=== PATIENT | male | born 1950 | race Caucasian/White ===

== ENCOUNTER → 2016-12-01 | Outpatient (CLI) | payer BC ==
--- NOTE | 2016-12-01 10:32 | US ---
Ultrasound Abdomen Retroperitoneal, Limited History: Follow up abdominal aortic aneurysm previously identified on CT angiography performed at an outside facility. The patient has a clinical history of coronary artery disease and hypertension. Technique: Transabdominal longitudinal and transverse ultrasound imaging of the abdominal aorta. [place] r Doppler evaluation is employed for assessment of vascularity. Evaluation is somewhat compromised by patient body habitus. Comparison to CT study from [facility] September 30, 2016. Findings Proximal aorta measures 2.4 cm (AP) x 2.4 cm (transverse) Mid aorta measures 1.4 cm (AP) x 1.4 cm (transverse) Distal aorta measures 3.6 cm (AP) x 3.6 cm (transverse) Right common iliac artery measures 1.3 cm (AP) x 1.3 cm (transverse) Left common iliac artery measures 1.3 cm (AP) x 1.3 cm (transverse) No periaortic abnormality is identified. Impression: Infrarenal abdominal aortic aneurysm measuring 3.6 cm in diameter. The estimated diameter on the [facility] study was 3.6 cm and the aneurysm is presumably unchanged.
--- NOTE | 2016-12-01 10:35 | US ---
Bilateral Duplex/Doppler Carotid Sonography Clinical Indications: History of CAD and arterial hypertension; evaluate for arterial occlusive disea se. Technique: The cervical portions of the carotid and vertebral arteries were imaged and interrogated b y color and pulsed Doppler. Spectral analysis was performed. Findings: Right Carotid: The common carotid artery, bifurcation, and origins of the internal and external carot id arteries are well imaged. Minimal plaque formation is seen at the level of the carotid bifurcatio n. Peak ICA systolic velocity; 69 cm/sec. The internal to common carotid artery ratio is calculated at 1.0. Peak ICA diastolic velocity; 13 cm/sec. There is no evidence of flow-limiting stenosis. Left Carotid: The common carotid artery, bifurcation, and origins of the internal and external carot id arteries are well imaged. Mild plaque formation is seen at the level of the carotid bifurcation. Peak ICA systolic velocity; 63 cm/sec. The internal to common carotid artery ratio is calculated at 0.8. Peak ICA diastolic velocity; 10 cm/sec. There is no evidence of flow-limiting stenosis. Vertebral Arteries: Antegrade flow is shown by pulsed Duplex/Doppler of each vertebral artery. Impression: Plaque formation is seen involving the carotid bifurcations bilaterally with no evidence of flow-limiting carotid stenosis. Measurement of carotid stenosis is based on velocity parameters that correlate the residual internal carotid diameter with [place] Symptomatic Carotid Endarterectomy Trial (NASCET) based stenosis levels.
== END ==
LOC: BMCIMAGING 07:49
PROVIDERS: ATTEND Internal Medicine Interventional Cardiology
DX: I65.23 Occlusion and stenosis of bilateral carotid arteries (principal); I71.4 Abdominal aortic aneurysm, without rupture; I10 Essential (primary) hypertension; I25.10 Atherosclerotic heart disease of native coronary artery without angina pectoris

== ENCOUNTER 2016-12-23 07:24 | Observation (INO) | payer BC ==
[2016-12-23] MEDS ORDERED: DIAZEPAM 5 MG TAB PO ONE (07:30)
[2016-12-23] MEDS ORDERED: ASPIRIN EC 325 MG TAB PO ONE ×2 (07:30→08:09)
[2016-12-23] MEDS ORDERED: FAMOTIDINE 20 MG TAB PO ONE (07:30)
[2016-12-23] MEDS ORDERED: diphenhydrAMINE 25 MG CAP PO ONE ×2 (07:30→08:09)
[2016-12-23] MEDS ORDERED: NS 1,000 ML IV ONE (07:30)
[2016-12-23] MEDS ORDERED: DIAZEPAM 5 MG TAB ONE (08:09)
[2016-12-23] MEDS ORDERED: FAMOTIDINE 20 MG TAB ONE (08:09)
--- NOTE | 2016-12-23 08:09 | CPEKG ---
Heart Rate: 48 RR Interval: 1250 P-R Interval: 212 QRSD Interval: 104 QT Interval: 444 QTC Interval: 397 P [place]: 18 QRS [place]: -30 T Wave [place]: -7 EKG Severity - ABNORMAL ECG - EKG Impression: SINUS BRADYCARDIA EKG Impression: LEFT AXIS DEVIATION EKG Impression: ABNRM R PROG, CONSIDER ASMI OR LEAD PLACEMENT EKG Impression: BORDERLINE T ABNORMALITIES, INFERIOR LEADS Electronically Signed By: Radha Velez 23-Dec-2016 17:07:43
[2016-12-23 08:24] LABS: ADD DIFF? NO; ADD MORPH? NO; ADD SCAN? NO; ATYPICAL LYMPHOCYTE FLAG 0 (0-99); FRAGMENT RBC FLAG 0 (0-99); HEMATOCRIT 51.4 % (40.0-51.0); LEFT SHIFT FLG 0 (0-99); LIPEMIA HEMOLYSIS FLAG 90 (0-99); MEAN CELL VOLUME 94.3 fL (81.5-99.8); MEAN PLATELET VOLUME 11.9 fL (8.7-11.7); PLATELET CLUMPS FLAG 10 (0-99); PLATELET COUNT 110 10^3/uL (150-400); RED BLOOD CELL COUNT 5.45 10^6/uL (4.40-6.38); RED CELL DISTRIBUTION WIDTH 12.7 % (11.5-15.2)
[2016-12-23 08:35] LABS: INR 1.09 (0.83-1.16)
[2016-12-23] MEDS ORDERED: LIDOCAINE 1% 30 ML SDV ONE ×3 (08:39→10:50)
[2016-12-23] MEDS ORDERED: fentaNYL 100 MCG/2 ML INJ ONE ×2 (08:40→10:02)
[2016-12-23] MEDS ORDERED: MIDAZOLAM 2 MG/2 ML VIAL ONE ×3 (08:41→10:45)
[2016-12-23] MEDS ORDERED: VERAPAMIL 5 MG/2 ML VIAL ONE ×2 (08:42→09:56)
[2016-12-23] MEDS ORDERED: IOPAMIDOL (ISOVUE-370) 150 ML BTL IV ONE ×4 (08:42→10:11)
[2016-12-23] MEDS ORDERED: HEPARIN 10,000 UNIT/10 ML MDV ONE ×2 (08:42→09:49)
[2016-12-23 08:45] LABS: ANION GAP 9 mEq/L (8-16); CALCIUM 9.3 mg/dL (8.5-10.4); CARBON DIOXIDE 28 mEq/l (22-31); CHLORIDE 107 mEq/L (97-110); CHOLESTEROL 109 mg/dL (140-220); CHOLESTEROL/HDL RATIO 2.95 RATIO (1.00-4.97); CREATININE 1.4 mg/dL (0.7-1.3); GLOMERULAR FILTRATION RATE 51; GLUCOSE 82 mg/dL (70-100); HIGH DENSITY LIPOPROTEIN 37 mg/dL (40-65); LDL/HDL RATIO 1.27 RATIO (1.00-3.64); LOW DENSITY LIPOPROTEIN 47 mg/dL (80-100); NON-HIGH DENSITY LIPOPROTEIN 72 mg/dL (90-129); POTASSIUM 4.5 mEq/L (3.5-5.2); SODIUM 144 mEq/L (134-144); TRIGLYCERIDE 128 mg/dL (40-150); VERY LOW DENSITY LIPOPROTEINS 25 mg/dL (8-25)
[2016-12-23] MEDS ORDERED: ATROPINE SULFATE 1 MG/10 ML SYR ONE (09:21)
--- NOTE | 2016-12-23 09:44 | SUROPNOTE ---
MEI Operative Report - Surgery Date of Procedure: 12/23/2016 Indication: This patient is a 66 year old man with a history of coronary artery disease on the basis of coronary atherosclerosis seen on CT scan, stable abdominal aortic aneurysm, bilateral carotid artery disease, hyperlipidemia, hypertension, central sleep apnea, and rheumatoid arthritis. The patient had a nuclear stress test after evidence of coronary artery disease was seen on CT scan. Myocardial perfusion imaging was abnormal, demonstrating a small size, moderate intensity, reversible defect involving the basal inferior and basal inferior lateral dias, consistent with ischemia. The patient denies classical anginal symptoms; he denies any chest discomfort or shortness of breath with exertion. However, the patient does note feeling unusually fatigued recently, Haitian cardiovascular class II anginal equivalent. Left heart catheterization indicated secondary to intermediate risk non-invasive testing and class II anginal equivalent. Procedures performed: 1. Left heart catheterization with left ventricular and selective coronary angiography. Description of procedure: Description, risks, benefits and alternatives were discussed in detail. Informed consent was obtained. The patient was brought to the catheterization laboratory where a timeout was performed. The right wrist was sterilely prepped and draped. 2% lidocaine utilized for local anesthetic. A 5/6-Jordanian slender hemostatic sheath placed right radial artery utilizing micropuncture technique. Intraarterial verapamil and intravenous heparin was administered. Diagnostic coronary angiography performed with 6-Jordanian, Deborah left-3.5 and Deborah right -4 catheter. The Deborah left-3.5 catheter crossed the aortic valve and was utilized for left heart catheterization. It was very difficult to engage the right or left coronary system with the Deborah catheter. Instead, a 5-Jordanian Chuy radial catheter and 6-Jordanian AL1 catheter were utilized. All catheters were passed over a 0.035 guidewire. The obvious culprit lesion(s) are multiple areas of severe disease in the right coronary, including a chronic total occlusion of the distal right coronary artery. A 6-Jordanian short tip AL1 guide catheter was utilized to engage the right coronary artery and a short Functional Support Analyst 50 wire was placed distally in the right coronary. A Turnpike Spiral catheter was advanced into the right coronary artery. The Turnpike Spiral was difficult to advance, ultimately advanced into the mid vessel. At this point, decision was made to access the right femoral artery in order to make contralateral injections to assess the distal right coronary chronic total occlusion. The right groin was sterilely prepped and draped. 2% lidocaine utilized for local anesthetic. A 6-Jordanian hemostatic sheath placed right femoral artery utilizing Modified Seldinger technique. A 6- Jordanian Deborah left-4 diagnostic guide catheter was utilized to engage the left coronary system. Contralateral contrast injection was made simultaneously through the AL1 and JL4 catheters. The Turnpike Spiral was further manipulated but would not advance much further in the vessel. The Functional Support Analyst 50 was exchanged for a long [place] wire, to obtain more support from a stiffer wire. The long [place] was placed in the more distal posterolateral. The Turnpike Spiral was removed. A 2.5mm x 12mm monorail Emerge balloon was placed in the right coronary artery and was inflated, however the guide catheter kept being pushed back. The decision was made to instead utilize the femoral access for intervention and the radial access for contralateral injections. All guide catheters and wires were removed. A 6-Jordanian AL1 guide catheter was initially chosen for a femoral access guide catheter, however then it was decided to up- dilate the sheath to an 8-Jordanian. The 6-Jordanian sheath was exchanged for an 8- Jordanian sheath in the right femoral artery and an 8-Jordanian AL1 guide catheter was utilized to engage the right coronary. A 6-Jordanian TIG-4 was placed through the radial sheath, but then it was instead decided to access the left femoral artery instead. The left groin was sterilely prepped and draped. 2% lidocaine utilized for local anesthetic. A 6-Jordanian hemostatic sheath placed left femoral artery utilizing Modified Seldinger technique and a 6-Jordanian JL4 diagnostic catheter was placed to engage the left coronary system. The Turnpike Spiral catheter and a short Prowater J wire were placed in the right coronary artery. The short Prowater J was exchanged for the original short Functional Support Analyst 50. The Turnpike Spiral and Functional Support Analyst 50 were placed mid vessel, but would not cross further. There appeared to be a dissection flap in the mid vessel. Functional Support Analyst 50 appears to not be in true lumen. The decision was made to stop intervention attempt at this point. Final orthogonal angiography was performed with simultaneous contralateral injection. Arterial sheath was removed and TR band was placed. Angioseal arteriotomy repair was performed bilaterally. Findings: 1. Hemodynamics: Aortic pressure 115/66, mean of 88, left ventricular pressure 111/18/23 end-diastolic. There was no significant pull back gradient across the aortic valve. 2. Coronary angiography: Left main: The left main is a moderately large, short bifurcating vessel with mild calcified disease. 3. Left anterior descending: This is a large vessel continuing around the apex. There is a large bifurcating proximal diagonal. The LAD and diagonal have mild calcified luminal irregularities no worse than 30%. 4. Circumflex: The circumflex is non-dominant and gives rise to a has a large first obtuse marginal branch and a moderate posterolateral. There are extensive collaterals via the atrial branch to the distal dominant right coronary. The circumflex contains 30% luminal irregularities. 5. Right coronary: The right coronary is a quite large, dominant vessel with a proximal 80% stenosis, mid 80% stenosis, a distal chronic total occlusion with left to left and right to left collaterals, and a distal 70% stenosis which is proximal to the chronic total occlusion. The right coronary gives rise to a large PDA and large posterolateral. Overall Impression: 1. Multiple areas of severe right coronary artery disease with chronic total occlusion of the distal vessel. 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 Further intervention was not performed. 2. Otherwise mild coronary artery disease. Plan: 1. Medical therapy. 2. Attempt repeat intervention in 6-8 weeks once dissection heals. Portions of this report were documented by a ophthalmic medical technologist. I have reviewed this report and agree with the documentation. Report scribed for Dr. Winston Cardona. Report scribed by Shala Watkins.
[2016-12-23] MEDS ORDERED: NITROGLYCERIN 1,500 MCG/15 ML VIAL MISC ONE (10:11)
[2016-12-23] MEDS ORDERED: LORazepam 2 MG/ML INJ IVP PRN (12:40)
[2016-12-23] MEDS ORDERED: ONDANSETRON 4 MG/2 ML VIAL IVP PRN (12:40)
[2016-12-23] MEDS ORDERED: TEMAZEPAM 15 MG CAP PO PRN (12:40)
[2016-12-23] MEDS ORDERED: CLOPIDOGREL BISULFATE 75 MG TAB PO ONE ×2 (12:40→15:30)
[2016-12-23] MEDS ORDERED: HYDROCODONE/APAP 5/325 TAB PO PRN (12:40)
[2016-12-23] MEDS ORDERED: ATROPINE SULFATE 1 MG/10 ML SYR IVP PRN (12:40)
[2016-12-23] MEDS ORDERED: OXYCODONE/APAP 5/325 TAB PO PRN (12:40)
[2016-12-23] MEDS ORDERED: D5W 1/2 NS 1,000 ML IV SCH (12:45)
[2016-12-23] MEDS ORDERED: LIDOCAINE 2% JELLY 20 ML (UROJECT) ONE (13:16)
--- NOTE | 2016-12-23 14:43 | CPEKG ---
Heart Rate: 40 RR Interval: 1500 P-R Interval: 220 QRSD Interval: 108 QT Interval: 464 QTC Interval: 379 P [place]: 31 QRS [place]: -19 T Wave [place]: -24 EKG Severity - BORDERLINE ECG - EKG Impression: SINUS BRADYCARDIA EKG Impression: BORDERLINE T ABNORMALITIES, INFERIOR LEADS Electronically Signed By: Radha Velez 23-Dec-2016 17:07:54
[2016-12-23] MEDS ORDERED: PREGABALIN 50 MG CAP PO SCH (21:00)
[2016-12-24 05:32] LABS: % IMMATURE GRANULYOCYTES 0.3 % (0.0-1.1); ABSOLUTE IMMATURE GRANULOCYTES 0.01 10^3/uL (0.00-0.10); ADD DIFF? NO; ADD MORPH? NO; ADD SCAN? NO; ATYPICAL LYMPHOCYTE FLAG 10 (0-99); FRAGMENT RBC FLAG 0 (0-99); HEMATOCRIT 40.6 % (40.0-51.0); HEMOGLOBIN 14.1 g/dL (13.7-17.5); LEFT SHIFT FLG 0 (0-99); LIPEMIA HEMOLYSIS FLAG 90 (0-99); MEAN CELL HEMOGLOBIN 33.7 pg (27.9-34.1); MEAN CELL HEMOGLOBIN CONCENTR. 34.7 g/dL (32.4-36.7); MEAN CELL VOLUME 96.9 fL (81.5-99.8); MEAN PLATELET VOLUME 12.3 fL (8.7-11.7); PLATELET CLUMPS FLAG 20 (0-99); PLATELET COUNT 77 10^3/uL (150-400); RED BLOOD CELL COUNT 4.19 10^6/uL (4.40-6.38); RED CELL DISTRIBUTION WIDTH 12.8 % (11.5-15.2)
[2016-12-24] MEDS: AMANTADINE HCL 100 MG CAP PO SCH ×2 (05:52→12:29)
[2016-12-24 05:58] LABS: ALBUMIN 2.8 g/dL (3.5-5.0); ANION GAP 8 mEq/L (8-16); ASPARTATE AMINOTRANSFERASE 25 IU/L (17-59); BILIRUBIN,TOTAL 1.1 mg/dL (0.1-1.4); CALCIUM 8.2 mg/dL (8.5-10.4); CARBON DIOXIDE 25 mEq/l (22-31); CHLORIDE 108 mEq/L (97-110); CREATININE 1.3 mg/dL (0.7-1.3); GLOMERULAR FILTRATION RATE 56; GLUCOSE 91 mg/dL (70-100); LACTATE DEHYDROGENASE 353 IU/L (313-618); MAGNESIUM 1.8 mg/dL (1.6-2.3); POTASSIUM 4.2 mEq/L (3.5-5.2); SODIUM 141 mEq/L (134-144)
[2016-12-24 06:08] LABS: CREATINE KINASE-MB FRACTION 1.02 ng/mL (0-3.19); TROPONIN I 0.103 ng/mL (0-0.034)
--- NOTE | 2016-12-24 06:49 | CPEKG ---
Heart Rate: 43 RR Interval: 1395 P-R Interval: 224 QRSD Interval: 110 QT Interval: 496 QTC Interval: 420 P [place]: 28 QRS [place]: -22 T Wave [place]: 20 EKG Severity - ABNORMAL ECG - EKG Impression: SINUS BRADYCARDIA EKG Impression: NONSPECIFIC INTRAVENTRICULAR CONDUCTION DELAY Electronically Signed By: Radha Velez 24-Dec-2016 07:28:56
[2016-12-24] MEDS ORDERED: ASPIRIN EC 325 MG TAB PO SCH (09:00)
[2016-12-24] MEDS ORDERED: SULFAMETHOX/TMP 800/160 MG 1 TAB PO SCH (09:00)
[2016-12-24] MEDS ORDERED: QUINAPRIL HCL 20 MG PO SCH (09:00)
[2016-12-24] MEDS ORDERED: ASPIRIN 325 MG TAB PO SCH (09:00)
[2016-12-24] MEDS ORDERED: CLOPIDOGREL BISULFATE 75 MG TAB PO SCH (09:00)
[2016-12-24] MEDS ORDERED: LISINOPRIL 20 MG TAB PO SCH (09:00)
[2016-12-24] MEDS ORDERED: ROSUVASTATIN CALCIUM 10 MG TAB PO SCH (09:00)
[2016-12-24] MEDS ORDERED: METOPROLOL SUCCINATE XR 25 MG TAB PO SCH (09:00)
--- NOTE | 2016-12-24 09:49 | SOAPPROG ---
[id number] of [employer] of distal dominant RCA c/b dissection of mid RCA. Dissection required bilateral femoral artery access. There is otherwise mild CAD in LAD and Cx. Troponin is 0.103 this am. He has been placed on DAPT with aspirin and Plavix w/ plans to reattempt RCA PCI in about 6 weeks. 2. Bradycardia and borderline hypotension. 3. AAA, 3.6 cm. 4. Hyperlipidemia. 5. Rheumatoid arthritis. 6. Ataxia. 7. Recent UTI/pyelonephritis/epididymitis current treated with long course of Bactrim. Cr at 1.3 today (1.4). Plan: 1. Continue aspirin and Plavix. 2. Remove Ferreira catheter. 3. Discontinue metoprolol due to worsening dizziness and bradycardia. 4. Continue pantoprazole in the setting of daily meloxicam use. 5. Discharge to home today. 6. Office follow up next . 12/24/16 09:44 Subjective: No complaints this am. There are no complications for either right radial, right and left femoral puncture sites. There is mild ecchymosis and femoral sites without hematoma. He's had chest discomfort, shortness of breath, or pain overnight. Will be leaving on extended trip in late January and would like 2nd intervention before that. Objective: Vital Signs Temp Pulse Resp BP Pulse Ox 36.5 C 46 L 19 129/66 H 95 12/24/16 07:40 12/24/16 07:40 12/24/16 07:40 12/24/16 09:11 12/24/16 07:40 Laboratory Results 12/24/16 04:51 12/24/16 04:51 12/23/16 12/24/16 12/25/16 05:59 05:59 05:59 Intake Total 4000 Output Total 1700 Balance 2300 PT 14.0 SEC (12.0-15.0) 12/23/16 08:15 INR 1.09 (0.83-1.16) 12/23/16 08:15 - Time Spent With Patient Time Spent With Patient: 40 minutes spent coordinating care, documentation, and physical exam. Physical Exam - Physical Exam General Appearance: WD/WN, alert, no apparent distress Respiratory: chest non-tender, lungs clear, normal breath sounds, decreased breath sounds Cardiac/Chest: normal peripheral pulses, regular rate, rhythm, No systolic murmur Abdomen: normal bowel sounds, non-tender, soft Extremities: normal range of motion, non-tender, normal inspection, normal capillary refill Neuro/Psych: no motor/sensory deficits, alert, normal mood/affect, oriented x 3 ICD10 Worksheet Patient Problems: Problems Problem Status Diagnosed Coronary artery disease Acute
[2016-12-24] MEDS ORDERED: PANTOPRAZOLE SODIUM 40 MG TAB PO SCH (10:00)
[2016-12-24 11:22] VITALS: BP 113/64; PULSE 63; RESP 17; TEMP 97.8; O2SAT 99
== END 2016-12-24 12:44 | disposition home or self-care (01) ==
LOC: FCATH 07:24 → F2W 10:30
PROVIDERS: ADMIT Internal Medicine Interventional Cardiology; ATTEND Internal Medicine Interventional Cardiology
PROC: 4A023N7 Measurement of Cardiac Sampling and Pressure, Left Heart, Percutaneous Approach (ICD-10-PCS; principal; 2016-12-23)
PROC: B2151ZZ Fluoroscopy of Left Heart using Low Osmolar Contrast (ICD-10-PCS; 2016-12-23)
PROC: B2111ZZ Fluoroscopy of Multiple Coronary Arteries using Low Osmolar Contrast (ICD-10-PCS; 2016-12-23)
DX: I25.10 Atherosclerotic heart disease of native coronary artery without angina pectoris (principal); I97.51 Accidental puncture and laceration of a circulatory system organ or structure during a circulatory system procedure; I10 Essential (primary) hypertension; R94.39 Abnormal result of other cardiovascular function study; I71.4 Abdominal aortic aneurysm, without rupture; E78.00 Pure hypercholesterolemia, unspecified; G47.31 Primary central sleep apnea; M06.9 Rheumatoid arthritis, unspecified; M79.7 Fibromyalgia; R00.1 Bradycardia, unspecified; R27.0 Ataxia, unspecified; Z87.891 Personal history of nicotine dependence
CPT/HCPCS: 93005; 93458; 97162; C1725; C1769; C1887; G0378; C1760; J0461; J1200; J1644; J2250; J3010; Q9967

== ENCOUNTER → 2017-04-27 | Outpatient (CLI) | payer BC | LOC: CIMAGING 07:08 | PROVIDERS: ATTEND Physician Assistant Medical | DX: R17 Unspecified jaundice (principal) | CPT/HCPCS: 76700-PO ==